=== PATIENT | female | born 1970 | race Caucasian/White ===

== ENCOUNTER 2018-09-24 16:35 | Emergency (ER) | payer OTHER ==
[~2018-09-24] VITALS: Ht 149.9 cm; Wt 83.9 kg
[2018-09-24] MEDS ORDERED: LEXAPRO 10 MG T10 M1 PO (16:50)
[2018-09-24] MEDS ORDERED: UNICOMPLEX M TA1 TA1 PO (16:51)
[2018-09-24] MEDS ORDERED: ZYRTEC10 M4 PO (16:51)
[2018-09-24] MEDS ORDERED: AMBIEN 5 MG TABL5 M1 PO (16:51)
[2018-09-24 16:54] LABS: URINE BILIRUBIN NEGATIVE (Negative); URINE BLOOD 2+ (Negative); URINE CLARITY CLEAR; URINE COLOR YELLOW; URINE GLUCOSE-RANDOM NEGATIVE (Negative); URINE KETONES NEGATIVE (Negative); URINE LEUKOCYTES-REFLEX TRACE (Negative); URINE NITRITE-REFLEX NEGATIVE (Negative); URINE PROTEIN NEGATIVE (Negative); URINE UROBILINOGEN 0.2 E.U./dl (0.2-1.0)
[2018-09-24 17:01] LABS: BACTERIA-REFLEX None Seen /HPF (None Seen); CASTS None Seen /LPF (None Seen); CRYSTALS None Seen /LPF (None Seen); SQUAMOUS 0-3 Few /LPF (0-3); URINE RBC 0-2 Rare /HPF (0-2); URINE WBC-REFLEX 0-5 Rare /HPF (0-5)
[2018-09-24 17:09] LABS: ABSOLUTE BASOPHILS 0.1 thou/uL (0.0-0.2); ABSOLUTE EOSINOPHILS 0.3 thou/uL (0.0-0.7); ABSOLUTE LYMPHOCYTES 2.7 thou/uL (0.8-5.3); ABSOLUTE MONOCYTES 0.8 thou/uL (0.0-1.2); ABSOLUTE NEUTROPHILS 10.3 thou/uL (1.6-8.1); BASOPHILS 0.5 %; EOSINOPHILS 1.8 %; HEMATOCRIT 39.3 % (37.0-47.0); HEMOGLOBIN 13.1 gm/dL (12.0-15.0); LYMPHOCYTES 19.4 %; MCH 28.8 pg (26.0-34.0); MCHC 33.3 g/dL (28.0-37.0); MCV 86.4 fL (80.0-100.0); MONOCYTES 5.4 %; MPV 7.2 fl. (7.2-11.1); NUCLEATED RBCS 0 /100WBC; PLATELET COUNT* 244 thou/uL (150-400); POLYS 72.9 %; RBC 4.54 mil/uL (4.20-5.00); RDW-CV 13.9 % (10.5-14.5); WBC 14.1 thou/uL (4.0-11.0)
[2018-09-24 17:16] LABS: CALCIUM 8.7 mg/dL (8.5-10.1); CREATININE 0.7 mg/dL (0.6-1.3); POTASSIUM 3.5 mmol/L (3.5-5.1)
[2018-09-24 17:21] LABS: ALBUMIN 3.4 g/dL (3.4-5.0); TOTAL BILIRUBIN 0.4 mg/dL (<0.1-1.0); TOTAL PROTEIN 6.8 g/dL (6.4-8.2)
[2018-09-24] MEDS ORDERED: TORADOL 10 MG T10 MG PO (18:48)
[2018-09-24] MEDS ORDERED: CITRATE OF MAG296 ML PO (18:49)
[2018-09-24 18:59] VITALS: BP 129/68
== END 2018-09-24 19:03 | disposition home or self-care (01) ==
LOC: M.ERS 16:35
PROVIDERS: Physician Assistant
DX: K59.00 Constipation, unspecified (principal); R31.9 Hematuria, unspecified